=== PATIENT | male | born 1935 | race Two or more races ===

== ENCOUNTER 2020-04-18 16:01 | Inpatient (IN) | payer OTHER ==
[~2020-04-18] VITALS: Ht 172.7 cm; Wt 72.6 kg
[2020-04-18 16:10] VITALS: Ht 172.7 cm; Wt 72.6 kg
[2020-04-18 17:53] LABS: PLATELET COUNT 257 x10^3mcL (152-348); RED CELL DISTRIBUTION WIDTH 14.1 % (12.1-16.2)
[2020-04-18 18:09] LABS: BASOPHIL % 2.1 % (0.2-1.5)
[2020-04-18 18:11] LABS: rbc morphology (normal/abnorm) NORMAL (NORMAL)
[2020-04-18 18:22] LABS: ALKALINE PHOSPHATASE 151 U/L (46-116); ALT/SGPT 14 U/L (16-63); AST/SGOT 18 U/L (15-37); BILIRUBIN TOTAL 0.8 mg/dL (0.20-1.00); CALCIUM 8.8 mg/dL (8.5-10.1); CARBON DIOXIDE 31.7 mmol/L (21-32); CHLORIDE SERUM 96 mmol/L (98-107); GLUCOSE SERUM 201 mg/dL (74-106); POTASSIUM SERUM 3.4 mmol/L (3.5-5.1); SODIUM SERUM 136 mmol/L (136-145)
[2020-04-18 18:24] LABS: ALBUMIN 3.1 g/dL (3.4-5.0); CREATININE SERUM 4.3 mg/dL (0.7-1.3)
[2020-04-19] MEDS ORDERED: DILTIAZEM HCL60 M1 PO (00:40)
[2020-04-19] MEDS ORDERED: PLAVIX75 M1 PO (00:41)
[2020-04-19] MEDS ORDERED: NEPHRO-VITE RX1 TAB PO (00:43)
[2020-04-19] MEDS ORDERED: RENVELA800 M1 PO (00:43)
[2020-04-20 02:46] VITALS: BP 108/63
== END 2020-04-20 03:05 | disposition short-term general hospital (02) | DRG 206 ==
LOC: ED 16:01 → DU 04-19 01:57
PROVIDERS: Emergency Medicine; ADMIT Hospitalist; ATTEND Hospitalist
PROC: 0HQJXZZ Repair Left Upper Leg Skin, External Approach (ICD-10-PCS; principal; 2020-04-19)
DX: T82.838A Hemorrhage due to vascular prosthetic devices, implants and grafts, initial encounter (principal); I12.0 Hypertensive chronic kidney disease with stage 5 chronic kidney disease or end stage renal disease; I48.91 Unspecified atrial fibrillation; N18.6 End stage renal disease; D50.0 Iron deficiency anemia secondary to blood loss (chronic); Z20.828 Contact with and (suspected) exposure to other viral communicable diseases; Y83.8 Other surgical procedures as the cause of abnormal reaction of the patient, or of later complication, without mention of misadventure at the time of the procedure; Y92.89 Other specified places as the place of occurrence of the external cause
CPT/HCPCS: G0378; J2001; J2765; J3490; J7030; J7040; U0003